=== PATIENT | female | born 1960 | race Caucasian/White ===

== ENCOUNTER → 2019-02-01 13:02 | Outpatient (CLI) | payer BC, SELFPAY ==
--- NOTE | 2019-02-01 13:28 | RAD_ITS ---
STUDY: X-RAY CHEST REASON FOR EXAM: Female, 59 years old. Chest pain TECHNIQUE: PA and lateral views of the chest. COMPARISON: 08/11/2017 FINDINGS: The lungs are clear and expanded. There is no demonstrated pleural abnormality. Normal size heart. Normal mediastinum and subhash. Normal visualized pulmonary arteries. Normal visualized aortic arch and descending thoracic aorta. Normal visualized thoracic spine. Normal visualized ribs, clavicles, and shoulders. There is no demonstrated abnormality of the visualized soft tissue structures of the upper abdomen. RAD/Chest PA and Lateral IMPRESSION: Normal x-ray examination of the chest. Electronically Signed: Harlan Mehta DO at 13:43 EDT Tel , Service support ,
[2019-02-01 13:35] LABS: Erythrocyte Sedimentation Rate < 1 mm/hr (0-30)
[2019-02-01 14:06] LABS: CRP < 2.90 mg/L (0.0-3.0); Rheumatoid Factor < 10.0 IU/mL (<15)
== END ==
PROVIDERS: Family Provider Family Medicine; PCP Family Medicine; Referring Provider Internal Medicine Pulmonary Disease; Visit Provider Internal Medicine Pulmonary Disease
DX: R07.9 Chest pain, unspecified (principal); J45.909 Unspecified asthma, uncomplicated
CPT/HCPCS: 36415; 71046; 85652; 86140; 86431

== ENCOUNTER 2020-12-30 06:54 | Outpatient (RCR) | payer BC, SELFPAY ==
[2020-12-30] MEDS: COVID-19 VACC, MRNA(PFIZER)/PF 30 MCG/0.3 ML SYRINGE IM (14:52)
[2021-01-20] MEDS: COVID-19 VACC, MRNA(PFIZER)/PF 30 MCG/0.3 ML SYRINGE IM (14:35)
== END 2021-03-31 23:59 ==
LOC: IMMUN 06:54
PROVIDERS: PCP Family Medicine; Referring Provider Family Medicine; Visit Provider Family Medicine
DX: Z23 Encounter for immunization (principal)
CPT/HCPCS: 0001A; 0002A; 91300

== ENCOUNTER → 2023-05-16 | Outpatient (CLI) | payer MEDICARE, OTHER, SELFPAY ==
--- NOTE | 2023-05-16 13:12 | CT_ITS ---
STUDY: CT CHEST WITHOUT CONTRAST REASON FOR EXAM: Female, 63 years old. FIGUEROA. Cardiac over read examination. RADIATION DOSAGE (If Supplied By Facility): CTDIvol = ( 12.19 ) mGy, DLP = ( 243.79 ) mGycm TECHNIQUE: Transaxial imaging was performed without the administration of intravenous contrast material. Individualized dose optimization techniques were used for this CT. COMPARISON: No relevant priors. FINDINGS: CHEST Mild degree of emphysematous changes. There is no demonstrated pleural abnormality. No coronary artery calcification. Normal mediastinum. Normal hilar regions. Normal unenhanced pulmonary arteries. Normal aorta arch and descending thoracic aorta. There are degenerative changes of the thoracic spine. There is no demonstrated abnormality of the visualized upper abdomen. CT/Limited Chest CT Cardiac Only IMPRESSION: Mild degree of emphysematous changes. No acute abnormality is seen. Electronically Signed: Sabas Marie MD at 14:10 EDT ,
--- NOTE | 2023-05-16 16:03 | CA.SCORE ---
Calcium Scoring Date of Study:: 05/16/23 Indications Indications: Dyspnea on exertion Coronary Calcium Scoring: High-resolution Computed Tomographic imaging of the chest was performed on [05/16/2023], with particular attention paid to the coronary arteries. Images from the examination were analyzed for the presence and extent of coronary artery calcification , using coronary calcium quantification software. The patient tolerated the procedure well and there were no complications. The results of the coronary calcification analysis are provided below. Findings Coronary Artery Left Main (LM): 0 Left Anterior Descending (LAD): 0 Left Circumflex (LCX): 0 Right Coronary Artery (RCA): 0 Total Agatston Score: 0 Percentile Rankin Calcium Scoring Interpretation: Different methods to categorize the overall amount of coronary plaque. Overall amount CAC SIS Visual of coronary plaque P1 Mild -100 <2 1-2 vessels with mild amount of plaque P2 Moderate 101-300 3-4 1-2 vessels with moderate amount, 3 vessels with mild amount of plaque P3 Severe 301-999 5-7 3 vessels with moderate amount, 1 vessel with severe amount of plaque P4 Extensive >1000 >8 2-3 vessels with severe amount of plaque Conclusion: No evidence of atherosclerotic plaquing noted.
== END | disposition home or self-care (01) ==
PROVIDERS: PCP Family Medicine; Referring Provider Internal Medicine Cardiovascular Disease; Visit Provider Internal Medicine Cardiovascular Disease
DX: R06.09 Other forms of dyspnea (principal)
CPT/HCPCS: 75571; 76380

== ENCOUNTER → 2023-05-20 | Outpatient (CLI) | payer MEDICARE, OTHER, SELFPAY ==
--- NOTE | 2023-05-20 12:50 | STEWCON_ITS ---
Reason For Study: Dyspnea/shortness of breath Stress Results Protocol: Dobutamine Stress Echo With Definity Maximum Predicted HR: 155 bpm Target HR: 132 bpm % Maximum Predicted HR: 86 % Heart Stage Duration Rate BP Dose Comment (mm:ss) (bpm) Baseline 61 179/88 Patient denies chest pain Stage 1 6:39 71 155/8210.00Patient denies chest pain Stage 2 3:00 72 149/7520.00Patient denies chest pain Stage 3 3:00 122 157/7730.00Patient denies chest pain Patient complains of mild chest heaviness and feeling that her Stage 4 3:12 134 132/6840.00heart is beating very hard Patient denies chest pain or heaviness. 7ml total definity used Recovery 81 137/81 per protocol. Stress Duration: 15:51 mm:ss Maximum Stress HR: 134 bpm Baseline Echocardiogram Findings Stress Echo Wall motion Data Resting WM Intermediate WM Stress WM Time Measurements MV dec time: 0.25 sec Doppler Measurements & Calculations MV E max oscar: 54.4 cm/sec MV dec slope: 217.8 cm/sec2 TR max oscar: 221.8 cm/sec MV A max oscar: 63.3 cm/sec TR max P.7 mmHg MV E/A: 0.86 ECHO/Stress Test Echo W/Contrast Interpretation Summary Dobutamine stress echocardiogram 63-year-old lady with a history of dyspnea. Stress test. Resting EKG demonstrates sinus rhythm with a rate of 61 bpm resting blood press ure is 179/88 mmHg. Dobutamine was infused starting at 10 mcg/kg/min and increasing every 3 minutes to a peak of 40 mcg/kg/min. The test was terminated due to attainment of target heart rate and mild chest heaviness. At rest there were no ST or T wave changes noted suggest ischemia. At low-dose and at peak infusion there were upsloping ST changes noted which did not meet the criteria for ische branden. The peak blood pressure was 179/88 mmHg which is normal blood pressure response to dobutamine infusion. Resting and stress echocardiographic images were obtained with and without Defi nity enhancement. The resting ejection fraction was noted to be approximately 60% with no wall motion abnormalities and at low dose there was improvement in left ventricular function and at peak dose es timated ejection fraction was 70% with no wall motion abnormalities present. Conclusion: Dobutamine stress echocardiogram with no evidence of dobutamine induced ischemi a at the target heart rate. Ordering Physician: Edouard Howell Referring Physician: Edouard Howell Performed By: Raz Hartman RCS
== END | disposition home or self-care (01) ==
LOC: CVS 12:50
PROVIDERS: PCP Family Medicine; Referring Provider Internal Medicine Cardiovascular Disease; Visit Provider Internal Medicine Cardiovascular Disease
DX: R06.09 Other forms of dyspnea (principal)
CPT/HCPCS: 93017; 93350; J7040; Q9957; A4216; C8928